=== PATIENT | male | born 1975 ===

== ENCOUNTER 2018-05-11 10:36 | Emergency (ER) | payer MEDICAID, OTHER ==
[2018-05-11 10:49] VITALS: BMI 22.6
--- NOTE | 2018-05-11 11:15 | ED PDOC ---
HPI: Abdomen Time Seen by Provider: 05/11/18 10:58 Chief Complaint (Nursing): Abdominal Pain History Per: Patient Onset/Duration Of Symptoms: Other (2 months) Current Symptoms Are (Timing): Still Present Severity: Moderate Pain Scale Rating Of: 4 Location Of Pain/Discomfort: Epigastric Quality Of Discomfort: Unable To Describe Associated Symptoms: denies: Nausea, Vomiting, Diarrhea, Urinary Symptoms Exacerbating Factors: None Alleviating Factors: None Additional Complaint(s): Epigastric abd pain x 2 months worse last night. Denies nausea vomiting or diarrhea. Denies fever. Not assoc with food. No weight loss. No bloody stools Past Medical History Vital Signs: Last Vital Signs Temp 97.7 F 05/11/18 10:49 Pulse 61 05/11/18 10:49 Resp 20 05/11/18 10:49 BP 119/75 05/11/18 10:49 Pulse Ox 98 05/11/18 11:15 - Medical History PMH: No Chronic Diseases - Family History Family History: States: Unknown Family Hx - Home Medications Home Medications: Ambulatory Orders Medication Instructions Recorded Ibuprofen [Motrin] 400 mg PO Q6 #30 tab 07/07/16 Methocarbamol [Robaxin] 500 mg PO BID #16 tab 07/07/16 Pantoprazole Sodium [Protonix] 40 mg PO DAILY #30 tablet. 05/11/18 - Allergies Allergies/Adverse Reactions: Allergies Allergy/AdvReac Type Severity Reaction Status Date / Time No Known Allergies Allergy Verified 05/11/18 10:56 Review of Systems ROS Statement: Except As Marked, All Systems Reviewed And Found Negative Gastrointestinal: Positive for: Abdominal Pain Physical Exam - Reviewed Nursing Documentation Reviewed: Yes Vital Signs Reviewed: Yes - Physical Exam Appears: Positive for: Non-toxic, No Acute Distress Head Exam: Positive for: ATRAUMATIC, NORMAL INSPECTION, NORMOCEPHALIC Skin: Positive for: Normal Color, Warm, DRY Eye Exam: Positive for: EOMI, Normal appearance, PERRL ENT: Positive for: Normal ENT Inspection Neck: Positive for: Normal, Painless ROM Cardiovascular/Chest: Positive for: Regular Rate, Rhythm Respiratory: Positive for: CNT, Normal Breath Sounds Gastrointestinal/Abdominal: Positive for: Soft, Tenderness (Epigastric) Back: Positive for: Normal Inspection Extremity: Positive for: Normal ROM Neurologic/Psych: Positive for: Alert, Oriented - Laboratory Results Result Diagrams: 05/11/18 11:50 05/11/18 11:50 - ECG O2 Sat by Pulse Oximetry: 98 Disposition - Clinical Impression Clinical Impression: Gastritis - Patient ED Disposition Is Patient to be Admitted: No Counseled Patient/Family Regarding: Studies Performed, Diagnosis, Need For Followup, Rx Given - Disposition Referrals: [facility] [Outside] Disposition: Routine/Home Disposition Time: 14:31 Condition: FAIR Prescriptions: Pantoprazole Sodium [Protonix] 40 mg PO DAILY #30 tablet.dr Instructions: Gastritis Forms: [facility] (Hungarian)
[2018-05-11 11:19] VITALS: RESP 20; O2SAT 98
[2018-05-11 12:08] LABS: BASO % 0.3 % (0.0-2.0); HEMOGLOBIN 15.2 g/dL (12.0-18.0); LYMPH % 6.1 % (20.0-40.0); MEAN CELL VOLUME 93.1 fl (80.0-94.0); MEAN CORPUSCULAR HEMOGLOBIN 31.6 pg (27.0-31.0); MEAN CORPUSCULAR HGB CONC 33.9 g/dL (33.0-37.0); MEAN PLATELET VOLUME 8.7 fl (7.2-11.7); MONO # 0.6 K/uL (0.0-0.8); MONO % 3.8 % (0.0-10.0); NEUT # 13.9 K/uL (1.8-7.0); NEUT % 89.8 % (50.0-75.0); PLATELET COUNT 184 K/uL (130-400); RBC 4.83 Mil/uL (4.40-5.90); WHITE BLOOD COUNT 15.5 K/uL (4.8-10.8)
[2018-05-11 12:15] LABS: ALB/GLOB RATIO 1.4 (1.0-2.1); ALT/SGPT 22 U/L (21-72); AST/SGOT 18 U/L (17-59); BLOOD UREA NITROGEN 13 mg/dl (9-20); CALCIUM 8.8 mg/dL (8.4-10.2); GFR AFRICAN-AMERICAN > 60; GFR NON-AFRICAN AMERICAN > 60; LIPASE 35 U/L (23-300)
[2018-05-11 13:45] LABS: BANDS 2 % (0-2); LYMPHOCYTE 4 % (20-50); MONOCYTE 2 % (0-10); NEUTROPHIL 92 % (42-75); PLATELET ESTIMATE NORMAL (NORMAL); TOTAL CELLS COUNTED 100
--- NOTE | 2018-05-11 14:29 | US ---
Date of service: 05/11/2018 HISTORY: Abd pain COMPARISON: None. TECHNIQUE: Sonographic evaluation of the right upper quadrant of the abdomen. FINDINGS: LIVER: Measures 13.8 cm in length. Normal echogenicity of the liver parenchyma. No mass. No intrahepatic bile duct dilatation. GALLBLADDER: Unremarkable. No gallstones. COMMON BILE DUCT: Measures 3 mm. No stones. No dilatation. PANCREAS: Unremarkable as visualized. No mass. No ductal dilatation. RIGHT KIDNEY: Measures 10.8 x 4.4 x 0.9 cm in length. Normal echogenicity. No calculus, mass, or hydronephrosis. AORTA: No aneurysmal dilatation. IVC: Unremarkable. OTHER FINDINGS: None . IMPRESSION: Normal exam.
[2018-05-11 15:29] VITALS: BP 120/70; PULSE 74; TEMP 98.4
== END 2018-05-11 16:00 | disposition home or self-care (01) ==
LOC: H.ER 10:36
DX: K29.70 Gastritis, unspecified, without bleeding (principal)